=== PATIENT | female | born 1990 | race Two or more races ===

== ENCOUNTER 2024-01-25 08:33 | Outpatient (CLI) | payer OTHER | END 2024-01-25 08:38 | disposition home or self-care (01) | LOC: PRENATAL 08:33 | PROVIDERS: ATTEND Obstetrics & Gynecology Maternal & Fetal Medicine | DX: O36.80X0 Pregnancy with inconclusive fetal viability, not applicable or unspecified (principal); Z36.82 Encounter for antenatal screening for nuchal translucency; O34.12 Maternal care for benign tumor of corpus uteri, second trimester; O99.891 Other specified diseases and conditions complicating pregnancy; Z3A.14 14 weeks gestation of pregnancy ==

== ENCOUNTER → 2024-03-03 08:15 | Outpatient (CLI) | payer OTHER | END | disposition home or self-care (01) | LOC: PRENATAL 08:15 | PROVIDERS: ATTEND Obstetrics & Gynecology Maternal & Fetal Medicine | DX: O35.3XX0 Maternal care for (suspected) damage to fetus from viral disease in mother, not applicable or unspecified (principal); O44.00 Complete placenta previa NOS or without hemorrhage, unspecified trimester; O34.10 Maternal care for benign tumor of corpus uteri, unspecified trimester; O43.90 Unspecified placental disorder, unspecified trimester; Z3A.20 20 weeks gestation of pregnancy ==

== ENCOUNTER → 2024-04-05 09:46 | Outpatient (CLI) | payer OTHER | END | disposition home or self-care (01) | LOC: PRENATAL 09:46 | PROVIDERS: ATTEND Obstetrics & Gynecology Maternal & Fetal Medicine | DX: O26.849 Uterine size-date discrepancy, unspecified trimester (principal); O34.10 Maternal care for benign tumor of corpus uteri, unspecified trimester; O43.90 Unspecified placental disorder, unspecified trimester; O24.419 Gestational diabetes mellitus in pregnancy, unspecified control; Z3A.25 25 weeks gestation of pregnancy ==

== ENCOUNTER 2024-05-01 13:32 | Outpatient (CLI) | payer OTHER | END 2024-05-01 13:33 | disposition home or self-care (01) | LOC: PRENATAL 13:32 | PROVIDERS: ATTEND Obstetrics & Gynecology Maternal & Fetal Medicine | DX: O26.849 Uterine size-date discrepancy, unspecified trimester (principal); O36.8199 Decreased fetal movements, unspecified trimester, other fetus; O34.10 Maternal care for benign tumor of corpus uteri, unspecified trimester; O43.90 Unspecified placental disorder, unspecified trimester; O24.419 Gestational diabetes mellitus in pregnancy, unspecified control; Z3A.30 30 weeks gestation of pregnancy ==

== ENCOUNTER 2024-05-02 11:32 | Outpatient (CLI) | payer OTHER | END 2024-05-02 12:19 | disposition home or self-care (01) | LOC: NST 11:32 | PROVIDERS: ATTEND Obstetrics & Gynecology Maternal & Fetal Medicine | DX: Z34.83 Encounter for supervision of other normal pregnancy, third trimester (principal) ==

== ENCOUNTER 2024-06-05 15:15 | Outpatient (CLI) | payer OTHER | END 2024-06-05 15:16 | disposition home or self-care (01) | LOC: PRENATAL 15:15 | PROVIDERS: ATTEND Obstetrics & Gynecology Maternal & Fetal Medicine | DX: O26.849 Uterine size-date discrepancy, unspecified trimester (principal); O36.8199 Decreased fetal movements, unspecified trimester, other fetus; O34.10 Maternal care for benign tumor of corpus uteri, unspecified trimester; O43.90 Unspecified placental disorder, unspecified trimester; O24.419 Gestational diabetes mellitus in pregnancy, unspecified control; Z3A.34 34 weeks gestation of pregnancy ==

== ENCOUNTER 2024-06-30 15:23 | Outpatient (CLI) | payer OTHER ==
[~2024-06-30] VITALS: Ht 162.6 cm; Wt 87.1 kg
[2024-06-30 16:20] VITALS: BP 130/90
[2024-06-30] MEDS ORDERED: RINGERS SOLUTION,LACTATED 1,000 ML IV SCH (17:00)
[2024-06-30] MEDS ORDERED: PRENATAL TABLE1 EAC1 PO (17:00)
[2024-06-30 18:16] LABS: URINE APPEARANCE Clear; URINE BILIRRUBIN Negative (NEGATIVE); URINE BLOOD Negative; URINE COLOR Yellow; URINE GLUCOSE Negative (NEGATIVE); URINE KETONE Negative (NEGATIVE); URINE LEUKOCYTE Negative; URINE NITRATE Negative; URINE PROTEIN Negative (NEGATIVE); URINE UROBILINOGEN 0.2 E.U./dl
[2024-06-30 18:17] LABS: URINE BACTERIA 30.5 uL (0.0-1933); URINE EPITHELIAL CELLS 5.6 uL (0.0-38.8)
[2024-06-30 18:17] LABS: HEMATOCRIT 38.8 % (36.0-45.00); HEMOGLOBIN 13.3 g/dL (12.0-15.00); MEAN CELL VOLUME 85.7 fL (80.00-100.00); MEAN CORPUSCULAR HEMOGLOBIN 29.4 pg (27.00-32.0); MEAN CORPUSCULAR HGB CONC 34.2 g/dl (32.0-36.0); PLATELET COUNT 227 K/uL (150-450); RED BLOOD COUNT 4.53 M/uL (4.00-6.00); RED CELL DISTRIBUTION WIDTH 15.1 % (11.5-14.5)
[2024-06-30 18:28] LABS: URINE CAST 0.14 uL (0.0-1.40); URINE RBC 1.4 uL (0.0-20.8); URINE WBC 0.7 uL (0.0-23.2)
[2024-06-30 18:33] LABS: INR < 0.93; PARTIAL THROMBOPLASTIN TIME 25.4 SECONDS (22.0-34.0); PROTHROMBIN TIME 9.8 SECONDS (9.0-11.5)
[2024-06-30 18:36] LABS: ALBUMIN 2.5 gm/dL (3.4-5.0); BILIRUBIN TOTAL 0.21 mg/dL (0.3-1.2); CALCIUM 9.2 mg/dL (8.5-10.1); CREATININE SERUM 0.56 mg/dL (0.55-1.02); GFR 124.67; GLOBULINA 3.5 G/DL (2.4-3.5); POTASSIUM 4.18 mEq/L (3.5-5.1)
[2024-06-30 19:31] VITALS: BP 123/81
[2024-06-30 23:17] VITALS: BP 131/88
[2024-07-01 03:08] VITALS: BP 124/74
[2024-07-01 07:31] VITALS: BP 117/79
[2024-07-01 11:25] VITALS: BP 128/80
[2024-07-01 12:37] VITALS: BP 128/80
== END 2024-07-01 12:40 | disposition home or self-care (01) ==
LOC: NST 15:23 → OBS/DEL 15:23
PROVIDERS: ATTEND Obstetrics & Gynecology Gynecology
DX: O26.893 Other specified pregnancy related conditions, third trimester (principal); Z3A.37 37 weeks gestation of pregnancy

== ENCOUNTER 2024-07-04 12:50 | Inpatient (IN) | payer OTHER ==
[~2024-07-04] VITALS: Ht 162.6 cm; Wt 88.9 kg
[~2024-07-04 12:50] MED LIST: PRENATAL TABLE1 EAC1 PO
[2024-07-05] VITALS (9 sets, daily range): BP systolic 127–146; BP diastolic 79–105; O2SAT 100
[2024-07-05] MEDS ORDERED: AMPICILLIN SODIUM 2,000 MG VIAL ONE (08:05)
[2024-07-05] MEDS ORDERED: OXYTOCIN 20 UNITS/500ML RL PIGGYBAG IV ONE (08:05)
[2024-07-05 09:19] LABS: PH,URINE 6.5 (5.0-8.0); URINE APPEARANCE Cloudy; URINE BILIRRUBIN Negative (NEGATIVE); URINE BLOOD Large; URINE COLOR Yellow; URINE GLUCOSE Negative (NEGATIVE); URINE KETONE Negative (NEGATIVE); URINE LEUKOCYTE Large; URINE NITRATE Negative; URINE PROTEIN Trace (NEGATIVE); URINE UROBILINOGEN 0.2 E.U./dl
[2024-07-05 09:21] LABS: HEMATOCRIT 40.2 % (36.0-45.00); HEMOGLOBIN 13.3 g/dL (12.0-15.00); MEAN CELL VOLUME 86.4 fL (80.00-100.00); MEAN CORPUSCULAR HEMOGLOBIN 28.6 pg (27.00-32.0); MEAN CORPUSCULAR HGB CONC 33.2 g/dl (32.0-36.0); PLATELET COUNT 243 K/uL (150-450); RED BLOOD COUNT 4.65 M/uL (4.00-6.00); RED CELL DISTRIBUTION WIDTH 15.2 % (11.5-14.5)
[2024-07-05 09:25] LABS: URINE EPITHELIAL CELLS 61.7 uL (0.0-38.8); URINE RBC 29.1 uL (0.0-20.8); URINE WBC 173.3 uL (0.0-23.2)
[2024-07-05] MEDS ORDERED: AMPICILLIN SODIUM 2,000 MG VIAL IV ONE (09:30)
[2024-07-05] MEDS ORDERED: OXYTOCIN 500 ML IV SCH (09:30)
[2024-07-05] MEDS ORDERED: RINGERS SOLUTION,LACTATED 1,000 ML IV SCH (09:30)
[2024-07-05 09:39] LABS: URINE BACTERIA > 9821.5 uL (0.0-1933); URINE CAST 1.17 uL (0.0-1.40)
[2024-07-05 09:52] LABS: INR 0.94; PARTIAL THROMBOPLASTIN TIME 27.9 SECONDS (22.0-34.0); PROTHROMBIN TIME 10.3 SECONDS (9.0-11.5)
[2024-07-05 09:59] LABS: ALBUMIN 2.5 gm/dL (3.4-5.0); BILIRUBIN TOTAL 0.44 mg/dL (0.3-1.2); CREATININE SERUM 0.59 mg/dL (0.55-1.02); GFR 117.38; GLOBULINA 3.6 G/DL (2.4-3.5); POTASSIUM 4.5 mEq/L (3.5-5.1); TOTAL PROTEIN 6.1 gm/dL (6.4-8.2); URIC ACID 3.9 mg/dL (2.5-7.5)
[2024-07-05] MEDS ORDERED: AMPICILLIN SODIUM 1,000 MG VIAL IV SCH (13:00)
[2024-07-05] MEDS ORDERED: PROMETHAZINE HCL 25 MG/ML AMPUL ONE (17:54)
[2024-07-05] MEDS ORDERED: PROMETHAZINE HCL 25 MG/ML AMPUL IV ONE (18:00)
[2024-07-05] MEDS ORDERED: CHLORHEXIDINE GLUCONATE 120 ML BOTTLE TOP ONE (19:03)
[2024-07-05] MEDS ORDERED: OXYTOCIN 20 UNITS/1000ML RL PIGGYBAG IV ONE (19:03)
[2024-07-05] MEDS ORDERED: LIDOCAINE HCL 1% 10ML VIAL ONE (19:03)
[2024-07-05] MEDS ORDERED: ERYTHROMYCIN BASE OPHT 1GM EACH TUBE OP ONE ×2 (19:03→20:00)
[2024-07-05] MEDS ORDERED: MAGNESIUM SULFATE IN WATER 4 GM/100 ML PIGGYBACK IV ONE (19:05)
[2024-07-05] MEDS ORDERED: CEFAZOLIN SODIUM 1,000 MG VIAL ONE (19:20)
[2024-07-05] MEDS ORDERED: OXYTOCIN 10 UNITS/ML VIAL ONE (19:21)
[2024-07-05] MEDS ORDERED: OXYTOCIN 10 UNITS/ML VIAL IM STA (19:53)
[2024-07-05] MEDS ORDERED: OXYTOCIN 1,000 ML IV ONE (20:00)
[2024-07-05] MEDS ORDERED: MAGNESIUM SULFATE IN WATER 100 ML IV ONE (20:00)
[2024-07-05] MEDS ORDERED: CEFAZOLIN SODIUM 1,000 MG VIAL IV ONE (20:00)
[2024-07-05] MEDS ORDERED: IBUprofen 400 MG TABLET PO PRN (20:00)
[2024-07-05] MEDS ORDERED: CHLORHEXIDINE GLUCONATE 120 ML BOTTLE TOP SCH (20:00)
[2024-07-05] MEDS ORDERED: CARBOPROST TROMETHAMINE 250 MCG/ML AMPUL IM ONE (21:00)
[2024-07-06 03:10] VITALS: BP 130/68
[2024-07-06 07:02] LABS: HEMATOCRIT 32.5 % (36.0-45.00); MEAN CELL VOLUME 86.1 fL (80.00-100.00); MEAN CORPUSCULAR HEMOGLOBIN 29.2 pg (27.00-32.0); MEAN CORPUSCULAR HGB CONC 33.9 g/dl (32.0-36.0); PLATELET COUNT 246 K/uL (150-450); RED BLOOD COUNT 3.77 M/uL (4.00-6.00); RED CELL DISTRIBUTION WIDTH 15.2 % (11.5-14.5)
[2024-07-06 07:21] LABS: BILIRUBIN TOTAL 0.47 mg/dL (0.3-1.2); CALCIUM 8.4 mg/dL (8.5-10.1); CREATININE SERUM 0.6 mg/dL (0.55-1.02); GFR 115.13; POTASSIUM 4.4 mEq/L (3.5-5.1)
[2024-07-06 07:38] VITALS: BP 115/66
[2024-07-06] MEDS ORDERED: DOCUSATE SODIUM 100MG CAP PO SCH (09:00)
[2024-07-06] MEDS ORDERED: NIFEDIPINE 30 MG TAB.SA.OSM PO SCH (09:00)
[2024-07-06 11:11] VITALS: BP 146/85; O2SAT 98
[2024-07-06 15:29] VITALS: BP 127/82
[2024-07-06 17:00] VITALS: BP 135/90
[2024-07-07 00:31] VITALS: BP 129/85
[2024-07-07 08:00] VITALS: BP 135/85
== END 2024-07-07 16:09 | disposition home or self-care (01) | DRG 807 ==
LOC: LDR 15:00 → OB/GYN 07-05 07:34 → LDR 07-05 15:00 → OB/GYN 07-06 14:28 → LDR 07-15 15:00
PROVIDERS: Obstetrics & Gynecology Gynecology; ADMIT Obstetrics & Gynecology Maternal & Fetal Medicine; ATTEND Obstetrics & Gynecology Maternal & Fetal Medicine
PROC: 10E0XZZ Delivery of Products of Conception, External Approach (ICD-10-PCS; principal; 2024-07-05)
PROC: 10D17Z9 Manual Extraction of Products of Conception, Retained, Via Natural or Artificial Opening (ICD-10-PCS; 2024-07-05)
PROC: 0UQG7ZZ Repair Vagina, Via Natural or Artificial Opening (ICD-10-PCS; 2024-07-05)
PROC: 3E033VJ Introduction of Other Hormone into Peripheral Vein, Percutaneous Approach (ICD-10-PCS; 2024-07-05)
PROC: 4A1HXCZ Monitoring of Products of Conception, Cardiac Rate, External Approach (ICD-10-PCS; 2024-07-05)
DX: O71.4 Obstetric high vaginal laceration alone (principal); O69.81X0 Labor and delivery complicated by cord around neck, without compression, not applicable or unspecified; O73.0 Retained placenta without hemorrhage; O99.824 Streptococcus B carrier state complicating childbirth; Z37.0 Single live birth; Z3A.38 38 weeks gestation of pregnancy